=== PATIENT | female | born 1980 | race Caucasian/White ===

== ENCOUNTER → 2017-12-03 | Outpatient (CLI) | payer OTHER ==
[~2017-12-03] MED LIST: HYDROCODON-ACE1 EACH PO; SEASONALE1 EACH PO
== END ==
LOC: M.MRI 07:30
DX: M54.5 Low back pain (principal); M54.10 Radiculopathy, site unspecified; M41.86 Other forms of scoliosis, lumbar region; M51.37 Other intervertebral disc degeneration, lumbosacral region

== ENCOUNTER → 2018-03-25 | Outpatient (CLI) | payer OTHER ==
[~2018-03-25] MED LIST changes: +ABILIFY10 MG PO; +BUTALB-APAP-CA1 EACH PO; +CLARITIN10 MG PO; +CYMBALTA20 MG PO; +FLONASE 0.05%50 MCG NASAL; +METAXALONE400 MG PO; +NORTREL1 EAC1 PO; +PROAIR HFA8.5 GM; +PROPRANOLOL 1010 MG PO; +SUDAFED 12 HOU120 MG PO; +SYNTHROID100 MC1 PO; +TRAMADOL 50 MG50 MG PO; +TRAZODONE 150150 M1 PO; +VISTARIL 25 MG25 M1 PO; +ZANAFLEX2 MG PO
--- NOTE | ~2018-03-25 | PAINCON ---
[facility] [address] [place] [address] PAIN MANAGEMENT CONSULTATION Name: RICHMONDBROWNRA SINGH Room: [facility] MARGARITA Hidalgo#: [id number] Admission: 03/25/18 Attend Phys: Darren Angeles MD Discharge: Date of : 84 Report #: [id number] THIS REPORT FOR: //name// CC: Fran Angeles DATE OF SERVICE: 03/25/2018 CHIEF COMPLAINT: Low back pain. HISTORY OF PRESENT ILLNESS: The patient is a 37-year-old female who has been referred to the pain clinic for evaluation. States that she is having pain, which is constant and achy in her low back. Occasionally, has some sharp shooting pain, which radiate down and around her right side into the right groin area. It involves her right leg. Feels that there is a sleepy component to this discomfort. She has been trying to control the pain with use of tramadol, metaxalone 800 mg t.i.d. and Cymbalta. Feels that these medications helped her pain about 30-40%. Notes that her pain is worse when she is sitting, standing, lifting and bending. Pain has been problematic since 11/2017. Notes her pain is better when she rests when she has used muscle relaxants and pain medication. Pain never truly goes away. Described as constant, shooting, stabbing, burning, shooting, cramping, aching, throbbing, sharp, stabbing and tender. Rates as a 4-5/10. ALLERGIES: PENICILLIN, GUAIFENESIN. MEDICATIONS: ProAir daily, Abilify 10 mg, Fioricet 2 tablets q. 4 hours p.r.n., Cymbalta 20 mg, Flonase 0.05% spray, Vistaril 25 mg t.i.d., Synthroid 100 mcg, Claritin 10 mg, metaxalone 400 mg, Nortrel, propranolol 10 mg, Sudafed q. 12 hours 120 mg, Zanaflex 2 mg, tramadol 50 mg q. 6 hours 50 mg, trazodone 150 mg daily. PAST MEDICAL HISTORY: Asthma, gallbladder disease, thyroid disease, colon problems, stomach problems, emotional problems, ulcers. PAST SURGICAL HISTORY: Arthroscopic surgery of the left knee, impacted wisdom tooth extracted, 2000. 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 REVIEW OF SYSTEMS: Fever, night sweats, fatigue, weakness, headaches, wears glasses, hearing loss, chronic sinus problems, sore throat, swollen glands in the neck, chest pain, palpitations, shortness of breath, frequent coughs, asthma, wheezing, frequent diarrhea, painful constipation, peptic ulcer, painful periods, joint pain, weakness of muscles and joints, muscle cramps, back pain, difficulty walking, varicose veins, frequent recurring headaches, [place] [address] PAIN MANAGEMENT CONSULTATION Name: MARISSA RICHMOND [id number] Admission: 03/25/18 Attend Phys: Darren Angeles MD Discharge: Date of : 84 Report #: [id number] lightheadedness, dizziness, numbness and tingling sensation, memory loss, nervousness, depression, insomnia, slow to heal, easy bruising, large glands. LABORATORY DATA: MRI of the lumbar spine dated 03/08/2017: 1. L1-L2 mild disk bulge, slightly more conspicuous otherwise, no significant spinal stenosis or neural foraminal narrowing. 2. L2-L3 mild circumferential disk bulge with subtle annular fissure, mild facet arthropathy, minimal spinal stenosis and mild left neural foraminal narrowing, not significantly changed from prior. 3. L3-L4, mild circumferential disk bulge, mild facet arthropathy, minor spinal stenosis, mild bilateral neural foraminal narrowing minimally progressed from prior. 4. L4-L5 approximately 2 cm anterolisthesis. Disk bulge with a small annular fissure. Mild to moderate facet arthropathy. Mild spinal stenosis. Moderate right and mild left neural foraminal narrowing minimally progressed from prior. 5. L5-S1 mild circumferential disk osteophyte complex. Mild facet arthropathy. No significant spinal stenosis. Moderate to severe bilateral neural foraminal stenosis. IMPRESSION: Multilevel spondylosis of the lumbar spine. Overall, mildly worsened from prior exam in 2012. PAIN CLINIC ASSESSMENT AND PQRS: 1. Osteoarthritis. The patient has arthritic changes in the low back area. 2. Rheumatoid arthritis. The patient has not been treated for rheumatoid arthritis. 3. Height 5 feet 7 inches. Weight 281 pounds, BMI is 44. 4. Vital signs: Blood pressure 141/88, her heart rate 76, respiratory rate 16, room air saturation 98%, temperature is 97.9. 5. Pain intensity: 4/10. 6. Fall history: The patient has not fallen in the last 3 months. 7. Blood thinner. The patient is not on a blood thinning medication. 8. Hypertension. The patient is being treated for hypertension. 9. Blood thinner. The patient is not on a blood thinning medication. 10. Opioids greater than 6 weeks. The patient is not receiving opioid medications greater than 6 weeks. 11. Risk assessment tool, mild for opioid use. 12. Functional assessment tool. 13. Recreational drug use. The patient denies use of recreational drugs. 14. Tobacco: The patient does smoke cigarettes. We have discussed the benefits of smoking cessation with the patient. 15. Alcohol: The patient denies frequent use of alcoholic beverages. PHYSICAL EXAMINATION: GENERAL: The patient is a well-developed, well-nourished white female. Appears her stated age. She is alert and oriented x 3. A[place] [address] PAIN MANAGEMENT CONSULTATION Name: MARISSA RICHMOND Room: [facility]#: [id number] Admission: 03/25/18 Attend Phys: Darren Angeles MD Discharge: Date of : 84 Report #: [id number] is fluent. HEENT: Normocephalic, atraumatic. Extraocular eye muscles intact. The patient is obese. NECK: Without significant adenopathy or JVD. Upper extremity muscle strength is judged to be 5/5 for the major muscle groups in the upper extremity. Deep tendon reflexes are +1 bilaterally at the biceps. Hi Lo Driver strength 5/5. The patient without significant scoliosis, kyphosis or lordosis. HEART: Regular rate. LUNGS: Generally clear without wheezing. ABDOMEN: Protuberant. Bowel sounds present. MUSCULOSKELETAL: The patient complains of pain and discomfort in the low back area. Forward bending to about 90 degrees was accomplished. Left and right lateral bending cause some increased right-sided discomfort. The patient is able to rise up on her toes and rise to her heels. Has pain and discomfort in the low back area in the L4 through the sacral area. Has pain and discomfort with numbness and tingling in the anterior portion of her thigh in the L2-L3 dermatomal distribution. IMPRESSION: 1. Lumbar radiculopathy, L2-L3 area with MRI findings of annular fissure with spinal stenosis, minimal. 2. Asthma. 3. Gallbladder disease. 4. Thyroid disease. 5. Colon problems. 6. Stomach problems. 7. Emotional problems. 8. Ulcers. RECOMMENDATIONS: We discussed treatment options with the patient. At this juncture, we will try a conservative approach. The patient has not undergone physical therapy. We will have her try physical therapy and we will consider possibility of an epidural steroid injection in the L2-L3 dermatomal distribution in the future. Risk and benefits of the procedures were discussed with the patient. She will follow up in the near future. By: [id number]. Keron Angeles MD /MUMTAZ
== END ==
LOC: M.PC 04:53
DX: M47.26 Other spondylosis with radiculopathy, lumbar region (principal); J45.909 Unspecified asthma, uncomplicated; M48.061 Spinal stenosis, lumbar region without neurogenic claudication; K82.9 Disease of gallbladder, unspecified; K59.9 Functional intestinal disorder, unspecified; E07.9 Disorder of thyroid, unspecified; K92.9 Disease of digestive system, unspecified; F98.9 Unspecified behavioral and emotional disorders with onset usually occurring in childhood and adolescence; L98.499 Non-pressure chronic ulcer of skin of other sites with unspecified severity; Z79.899 Other long term (current) drug therapy

== ENCOUNTER → 2018-10-09 | Outpatient (CLI) | payer OTHER ==
[~2018-10-09] MED LIST changes: -CYMBALTA20 MG PO; +CYMBALTA60 MG PO; +LYRICA 50 MG50 MG PO; -METAXALONE400 MG PO; +SKELAXIN 800 M800 M1 PO; -SYNTHROID100 MC1 PO; +SYNTHROID75 MCG PO
--- NOTE | ~2018-10-09 | PAINCON ---
[address] [address] PAIN MANAGEMENT CONSULTATION Name: MARISSA RICHMOND Room: [facility] MARGARITA Hidalgo#: [id number] Admission: 10/09/18 Attend Phys: Darren Angeles MD Discharge: Date of : 84 Report #: [id number] THIS REPORT FOR: //name// CC: Linwood Angeles DATE OF SERVICE: 10/09/2018 CHIEF COMPLAINT: All over pain as well as low back pain. HISTORY: The patient is a 38-year-old female who has been having pain and discomfort in a number of areas. She has a history of fibromyalgia. Notes that her pain continues to limit significantly her activities of daily living. She is only able to work for 4 hours at a time. Rates her pain as a 4/10 at this point. She has used tramadol. She finds that one tablet daily has been beneficial and helpful. She has tried Lyrica in the past, but was unable to pursue this medication because of the expense. She has used gabapentin. She felt that this medication made her more agitated. She was unable to tolerate it. She feels that with her current use of tramadol her pain is about 50% better. She does feel that stress exacerbates her discomfort. She was given a script to see physical therapy. She was unable to at the last visit. She would like to have another script to try physical therapy at this juncture. ALLERGIES: PENICILLIN, GUAIFENESIN. MEDICATIONS: ProAir daily, Abilify 10 mg, Fioricet 2 tablets q. 4 hours, Cymbalta 20 mg, Flonase 0.5% spray, Vistaril 25 mg t.i.d., Synthroid 100 mcg, Claritin 10 mg, metaxalone 400 mg, Nortel, propranolol 10 mg, Sudafed q. 12 hours 120 mg, Zanaflex 2 mg, tramadol 50 mg daily, and trazodone 150 mg daily. PAIN CLINIC ASSESSMENT/PQRS: 1. Osteoarthritis. The patient has some arthritic changes in the low back. She is not being treated for rheumatoid arthritis. 2. Height 5 feet 6 inches, weight 265 pounds, BMI 41. 3. Vital Signs: Blood 124/78, heart rate 61, respiratory rate 16, room air saturation 97%, temperature 98. 4. Pain intensity 05/04. 5. Fall History: The patient has not fallen or required medical attention in the last 3 months. 6. Blood thinner. The patient is not on a blood thinning medication. 7. Hypertension. The patient is being treated for hypertension. 8. Opioids greater than 6 weeks. The patient is not receiving opioids, but has used tramadol 50 mg daily and found this is helpful. 9. Risk for opioid use low. 10. Functional assessment tool. 11. Recreational drug use. The patient [place] [address] PAIN MANAGEMENT CONSULTATION Name: MARISSA RICHMOND Room: [facility]#: [id number] Admission: 10/09/18 Attend Phys: Darren Angeles MD Discharge: Date of : 84 Report #: [id number] 12. Tobacco: The patient does smoke cigarettes, 1 cigarette per day. 13. Alcohol: The patient denies frequent use of alcoholic beverages. PHYSICAL EXAMINATION: GENERAL: The patient is a well-developed, well-groomed, and somewhat obese white female, appears her stated age. She is alert and oriented x 3. Her affect is appropriate. Speech is fluent. HEENT: Normocephalic, atraumatic. Extraocular eye muscles intact. Sclerae nonicteric. Mucous membranes are moist. NECK: Without adenopathy or JVD. HEART: Regular rate. LUNGS: Clear to auscultation. ABDOMEN: Protuberant. Bowel sounds present. MUSCULOSKELETAL: The patient without significant scoliosis, kyphosis or lordosis. Complains of some generalized back pain and discomfort. Has a history of low back pain in the lumbar area down at L4 down into the area of sacrum. IMPRESSION: 1. History of lumbar radiculopathy, L2-L3 in the past with an annular fissure at this level with spinal stenosis, which is deemed minimal. 2. Asthma. 3. Gallbladder disease. 4. Thyroid disease. 5. Colon problems. 6. Stomach problems. 7. Emotional problems. 8. History of ulcers. RECOMMENDATIONS: We discussed treatment options with the patient. The patient feels that 1 tramadol medication per day has been quite helpful in helping her get through the day. She is working 4 hours a day. Feels that this medication is beneficial. She was given a script for physical therapy at the last visit. Unfortunately, she was unable to schedule that. She would like to try physical therapy again. A script for this has been written for 3 times weekly for 3 weeks. She will give it a try. The patient will also try Lyrica 50 mg 1 p.o. t.i.d. A script for this has been written. The patient was unable to purchase it in the past. At this juncture, it appears that Lyrica may be off patent. We have checked with some pharmacies and the medication has been under 50 dollars. It was greater than 100 dollars in the past. She will call us if she has any concerns. [facility] [address] [place] [address] PAIN MANAGEMENT CONSULTATION Name: MARISSA RICHMOND [facility] [id number] Admission: 10/09/18 Attend Phys: Darren Angeles MD Discharge: Date of : 84 Report #: [id number] We would like to thank you for letting us participate in her care. We hope she continues to improve. By: [id number]. Keron Angeles MD /nt
== END ==
LOC: M.PC 04:48
DX: M54.16 Radiculopathy, lumbar region (principal); M48.061 Spinal stenosis, lumbar region without neurogenic claudication; J45.909 Unspecified asthma, uncomplicated; K82.9 Disease of gallbladder, unspecified; E07.9 Disorder of thyroid, unspecified; Z79.899 Other long term (current) drug therapy; Z88.8 Allergy status to other drugs, medicaments and biological substances; Z88.0 Allergy status to penicillin

== ENCOUNTER → 2020-04-21 | Outpatient (CLI) | payer OTHER ==
[~2020-04-21] MED LIST changes: +AJOVY AUTO225 MG/1.5 SUBQ; +BUSPIRONE HCL15 MG PO; +CLARITIN10 M2 PO; +HYDROCODON-ACE1 EAC7 PO; +ROSUVASTATIN CA10 MG PO; +SINGULAIR 10 MG10 MG PO; +TYLENOL 3 PO; +VRAYLAR1.5 MG PO; +XYZAL5 MG PO; -ZANAFLEX2 MG PO; +ZANAFLEX4 M2 PO
== END ==
LOC: M.PC 08:53
PROVIDERS: ATTEND Anesthesiology Pain Medicine
DX: M54.16 Radiculopathy, lumbar region (principal); J45.909 Unspecified asthma, uncomplicated; E04.9 Nontoxic goiter, unspecified; F98.9 Unspecified behavioral and emotional disorders with onset usually occurring in childhood and adolescence; M79.10 Myalgia, unspecified site; K82.9 Disease of gallbladder, unspecified; K63.9 Disease of intestine, unspecified; K92.9 Disease of digestive system, unspecified; Z87.11 Personal history of peptic ulcer disease; Z88.8 Allergy status to other drugs, medicaments and biological substances; Z79.899 Other long term (current) drug therapy

== ENCOUNTER → 2020-05-19 | Outpatient (CLI) | payer OTHER ==
[~2020-05-19] MED LIST changes: +MOBIC15 MG PO
== END ==
LOC: M.PC 09:20
PROVIDERS: ATTEND Anesthesiology Pain Medicine
DX: M48.061 Spinal stenosis, lumbar region without neurogenic claudication (principal); M54.16 Radiculopathy, lumbar region; J45.909 Unspecified asthma, uncomplicated; K82.9 Disease of gallbladder, unspecified; E07.9 Disorder of thyroid, unspecified; K63.9 Disease of intestine, unspecified; K31.9 Disease of stomach and duodenum, unspecified; M79.7 Fibromyalgia

== ENCOUNTER → 2020-06-16 | Outpatient (CLI) | payer OTHER | LOC: M.PC 09:00 | PROVIDERS: ATTEND Anesthesiology Pain Medicine | DX: M51.17 Intervertebral disc disorders with radiculopathy, lumbosacral region (principal); M47.816 Spondylosis without myelopathy or radiculopathy, lumbar region; M25.551 Pain in right hip; M25.552 Pain in left hip; M48.061 Spinal stenosis, lumbar region without neurogenic claudication; E04.9 Nontoxic goiter, unspecified; M79.10 Myalgia, unspecified site; F98.9 Unspecified behavioral and emotional disorders with onset usually occurring in childhood and adolescence; K92.9 Disease of digestive system, unspecified; K82.9 Disease of gallbladder, unspecified; J45.909 Unspecified asthma, uncomplicated; Z87.11 Personal history of peptic ulcer disease ==

== ENCOUNTER → 2020-07-14 | Outpatient (CLI) | payer OTHER | LOC: M.PC 09:06 | PROVIDERS: ATTEND Anesthesiology Pain Medicine | DX: M51.17 Intervertebral disc disorders with radiculopathy, lumbosacral region (principal); M48.07 Spinal stenosis, lumbosacral region; G89.29 Other chronic pain; M48.061 Spinal stenosis, lumbar region without neurogenic claudication; J45.909 Unspecified asthma, uncomplicated; K82.9 Disease of gallbladder, unspecified; M79.7 Fibromyalgia; Z79.899 Other long term (current) drug therapy; Z79.891 Long term (current) use of opiate analgesic ==

== ENCOUNTER → 2020-08-11 | Outpatient (CLI) | payer OTHER | LOC: M.PC 09:00 | PROVIDERS: ATTEND Anesthesiology Pain Medicine | DX: M51.17 Intervertebral disc disorders with radiculopathy, lumbosacral region (principal); M48.07 Spinal stenosis, lumbosacral region; M41.86 Other forms of scoliosis, lumbar region; M53.87 Other specified dorsopathies, lumbosacral region; J45.909 Unspecified asthma, uncomplicated; K82.9 Disease of gallbladder, unspecified; E07.9 Disorder of thyroid, unspecified; M25.551 Pain in right hip; M25.552 Pain in left hip; G89.29 Other chronic pain ==

== ENCOUNTER → 2020-09-08 | Outpatient (CLI) | payer OTHER ==
[~2020-09-08] MED LIST changes: +AMITRIPTYLINE H10 M1 PO
== END ==
LOC: M.PC 08:47
PROVIDERS: ATTEND Anesthesiology Pain Medicine
DX: M47.27 Other spondylosis with radiculopathy, lumbosacral region (principal); M51.17 Intervertebral disc disorders with radiculopathy, lumbosacral region; M48.07 Spinal stenosis, lumbosacral region; M48.061 Spinal stenosis, lumbar region without neurogenic claudication; J45.909 Unspecified asthma, uncomplicated; K82.9 Disease of gallbladder, unspecified; E07.89 Other specified disorders of thyroid; M79.7 Fibromyalgia; Z79.899 Other long term (current) drug therapy; Z79.891 Long term (current) use of opiate analgesic; Z87.891 Personal history of nicotine dependence; Z88.0 Allergy status to penicillin; Z88.1 Allergy status to other antibiotic agents

== ENCOUNTER → 2020-10-06 | Outpatient (CLI) | payer OTHER ==
[~2020-10-06] MED LIST changes: +AMITRIPTYLINE H25 M3 PO
== END ==
LOC: M.PC 09:13
PROVIDERS: ATTEND Anesthesiology Pain Medicine
DX: M41.86 Other forms of scoliosis, lumbar region (principal); M51.26 Other intervertebral disc displacement, lumbar region; Z79.899 Other long term (current) drug therapy; Z79.891 Long term (current) use of opiate analgesic

== ENCOUNTER → 2020-11-10 | Outpatient (CLI) | payer OTHER | LOC: M.PC 08:40 | PROVIDERS: ATTEND Anesthesiology Pain Medicine | DX: S86.012A Strain of left Achilles tendon, initial encounter (principal); M25.551 Pain in right hip; M25.552 Pain in left hip; M54.16 Radiculopathy, lumbar region; M48.061 Spinal stenosis, lumbar region without neurogenic claudication; K82.9 Disease of gallbladder, unspecified; M79.7 Fibromyalgia; J45.909 Unspecified asthma, uncomplicated; X58.XXXA Exposure to other specified factors, initial encounter; Y93.89 Activity, other specified; Y92.89 Other specified places as the place of occurrence of the external cause; Y99.8 Other external cause status; Z88.8 Allergy status to other drugs, medicaments and biological substances; Z79.899 Other long term (current) drug therapy ==

== ENCOUNTER → 2021-01-05 | Outpatient (CLI) | payer OTHER | LOC: M.PC 08:29 | PROVIDERS: ATTEND Anesthesiology Pain Medicine | DX: M51.16 Intervertebral disc disorders with radiculopathy, lumbar region (principal); M51.17 Intervertebral disc disorders with radiculopathy, lumbosacral region; M48.07 Spinal stenosis, lumbosacral region; M48.061 Spinal stenosis, lumbar region without neurogenic claudication; E07.89 Other specified disorders of thyroid; K82.9 Disease of gallbladder, unspecified; M79.7 Fibromyalgia; J45.909 Unspecified asthma, uncomplicated; M25.78 Osteophyte, vertebrae; Z88.0 Allergy status to penicillin; Z88.8 Allergy status to other drugs, medicaments and biological substances; Z79.899 Other long term (current) drug therapy ==

== ENCOUNTER → 2021-02-02 | Outpatient (CLI) | payer OTHER | LOC: M.PC 08:20 | PROVIDERS: ATTEND Anesthesiology Pain Medicine | DX: S86.012D Strain of left Achilles tendon, subsequent encounter (principal); M54.16 Radiculopathy, lumbar region; K82.9 Disease of gallbladder, unspecified; E04.9 Nontoxic goiter, unspecified; M79.7 Fibromyalgia; J45.909 Unspecified asthma, uncomplicated; Z79.2 Long term (current) use of antibiotics; Z87.891 Personal history of nicotine dependence; X58.XXXD Exposure to other specified factors, subsequent encounter ==

== ENCOUNTER → 2021-03-30 | Outpatient (CLI) | payer OTHER | LOC: M.PC 08:11 | PROVIDERS: ATTEND Anesthesiology Pain Medicine | DX: M51.16 Intervertebral disc disorders with radiculopathy, lumbar region (principal); M25.78 Osteophyte, vertebrae; K82.8 Other specified diseases of gallbladder; E07.89 Other specified disorders of thyroid; M79.7 Fibromyalgia; J45.909 Unspecified asthma, uncomplicated; Z88.0 Allergy status to penicillin; Z88.8 Allergy status to other drugs, medicaments and biological substances; Z79.899 Other long term (current) drug therapy ==